=== PATIENT | female | born 1990 | race Two or more races ===

== ENCOUNTER 2018-02-02 07:02 | Emergency (ER) | payer OTHER ==
--- NOTE | 2018-02-02 07:33 | ED Physician Documentation ---
History of Present Illness - Stated complaint Stated Complaint: 12 WKS PREG/BLEEDING/CRAMPING - Chief complaint Chief Complaint: General - Additonal information Additional information: hx from pt last baby is 9 months old right now 2 prior C sections she is not sure how far along she is with this preg as she had not resumed nl periods she duesses 10-14 weeks has not had any care has brown dc for 3 days and now red beeding lower abd cramping nausea some diarrhea no fever Review of Systems Constitutional: denies: Fever Cardiac: denies: Chest pain / pressure Respiratory: denies: Dyspnea GI: reports: Abdominal Pain, Nausea, Diarrhea. denies: Vomiting : reports: Vaginal bleeding, Now EGA Endocrine: denies: Easy bruising / bleeding Immunocompromised: denies: Immunocompromised PD PAST MEDICAL HISTORY - Allergies Allergies/Adverse Reactions: Allergies Allergy/AdvReac Type Severity Reaction Status Date / Time No Known Drug Allergies Allergy Verified 02/02/18 07:19 PD ED PE NORMAL - Vitals Vital signs reviewed: Yes - General General: Alert and oriented X 3 - HEENT HEENT: PERRL - Neck Neck: Supple, no meningeal sign - Cardiac Cardiac: RRR - Respiratory Respiratory: No respiratory distress, Clear bilaterally - Abdomen Abdomen: Soft, Other (mod TTP across low abd s rebound or guarding) - Derm Derm: Normal color - Extremities Extremities: Normal ROM s pain - Neuro Neuro: Alert and oriented X 3 Results - Vitals Vitals: Vital Signs - 24 hr 02/02/18 07:11 Temperature 35.6 C L Heart Rate 78 Respiratory 16 Rate Blood Pressure 123/78 O2 Saturation 100 Oxygen O2 Source Room air - Labs Labs: Laboratory Tests 02/02/18 02/02/18 02/02/18 07:43 07:43 09:11 HCG, Quant 3662.00 Urine Color YELLOW Urine Clarity CLEAR Urine pH 6.0 Ur Specific [place] 1.015 Urine Protein NEGATIVE Urine Glucose (UA) NEGATIVE Urine Ketones NEGATIVE Urine Occult Blood MODERATE H Urine Nitrite NEGATIVE Urine Bilirubin NEGATIVE Urine Urobilinogen 0.2 (NORMAL) Ur Leukocyte Esterase NEGATIVE Urine RBC 0-5 Urine WBC 0-3 Ur Squamous Epith Cells MOD Squamous H Urine Bacteria Few Ur Microscopic Review INDICATED Urine Culture Comments NOT INDICATED Urine HCG, Qual Blood Type A POSITIVE 02/02/18 09:12 HCG, Quant Urine Color Urine Clarity Urine pH Ur Specific [place] 1.015 Urine Protein Urine Glucose (UA) Urine Ketones Urine Occult Blood Urine Nitrite Urine Bilirubin Urine Urobilinogen Ur Leukocyte Esterase Urine RBC Urine WBC Ur Squamous Epith Cells Urine Bacteria Ur Microscopic Review Urine Culture Comments Urine HCG, Qual POSITIVE Blood Type - Rads (name of study) pelvic sono Radiology: See rad report (verbal from rad who called me after doing sono :no IUP, nl adenxae, no ff. Final written report = fluid collection in uterus which could represent a gestational sac, cyct or focal fluid, if gest sac would correspond to 8w6d discordant with pt guess of her EGA) PD MEDICAL DECISION MAKING - ED course ED course: estimates she is 10-14 weeks preg, quant > discretionary threshold and no IUP on sono called Dr Vargas OB at 0945 and he will come see pt seen by Dr Vargas - he feels blighted ovum, os closed on his exam, will dc with TAB precautions - Sepsis Event Vital Signs: Vital Signs - 24 hr 02/02/18 07:11 Temperature 35.6 C L Heart Rate 78 Respiratory 16 Rate Blood Pressure 123/78 O2 Saturation 100 Oxygen O2 Source Room air Departure - Departure Disposition: 01 Home, Self Care Clinical Impression: Incomplete miscarriage Condition: Good Instructions: ED Miscarriage Incom Follow-Up: Juan Vargas MD [Provider Admit Priv/Credential] - Comments: Unfortunately the ultrasound shows what appears to be a non viable . You are likely in the midst of having a miscarriage It does not look like this is an ectopic Your blood type is A + You are scheduled for a D&C this afternoon with Dr Vargas Return at 2 PM to check into the peroperative area. Do not eat or drink anything before then !! If anything changes or worsens between now and 2 PM, call Dr Vargas or come back to the ER
--- NOTE | 2018-02-02 09:15 | Ultrasound Report ---
Procedure Date: 02/02/2018 Accession Number: [id number] / [id number] Procedure: US - OB First Trimester CPT Code: FULL RESULT: EXAM: OB First Trimester DATE: 02/02/2018 8:41 AM CLINICAL HISTORY: vag bleed TECHNIQUE: Real-time scanning was performed in transabdominal and transvaginal fashion with appeals representative static images obtained. COMPARISON: None FINDINGS: The patient's reported last menstrual period was 10/30/2017 for clinical estimated gestational age of 13 weeks and 4 days. Beta hCG is reported to be within the mid 3000s. There were cystic structure within the endometrial canal immaturity mean diameter of 36.5 mm, possible gestational sac. No yolk sac or embryo is identified within. There is no free fluid in the pelvis or adnexal region. There is no hydrosalpinx. The right ovary measures 4.0 x 1.5 x 2.3 cm appears morphologically unremarkable with normal blood flow on color Doppler The left ovary measures 2.8 x 2.2 x 2.7 cm and appears morphologically unremarkable with normal blood flow on color Doppler. IMPRESSION: of unknown location. The intrauterine fluid collection which could represent a gestational sac, cyst or focal fluid would correspond to estimated gestational age of 8 weeks and 6 days which is discordant with the reported last menstrual period. Close interval clinical follow-up including serial beta hCG and follow-up ultrasound are recommended. Findings were discussed at the time of interpretation over the phone at 9:[address] Fine.
--- NOTE | 2018-02-02 09:16 | Ultrasound Report ---
Procedure Date: 02/02/2018 Accession Number: [id number] / [id number] Procedure: US - OB Transvaginal CPT Code: FULL RESULT: EXAM: OB Transvaginal DATE: 02/02/2018 8:50 AM CLINICAL HISTORY: vag bleed TECHNIQUE: Real-time scanning was performed in transabdominal and transvaginal fashion with procurement representative static images obtained. COMPARISON: None FINDINGS: The patient's reported last menstrual period was 10/30/2017 for clinical estimated gestational age of 13 weeks and 4 days. Beta hCG is reported to be within the mid 3000s. There were cystic structure within the endometrial canal immaturity mean diameter of 36.5 mm, possible gestational sac. No yolk sac or embryo is identified within. There is no free fluid in the pelvis or adnexal region. There is no hydrosalpinx. The right ovary measures 4.0 x 1.5 x 2.3 cm appears morphologically unremarkable with normal blood flow on color Doppler The left ovary measures 2.8 x 2.2 x 2.7 cm and appears morphologically unremarkable with normal blood flow on color Doppler. IMPRESSION: of unknown location. The intrauterine fluid collection which could represent a gestational sac, cyst or focal fluid would correspond to estimated gestational age of 8 weeks and 6 days which is discordant with the reported last menstrual period. Close interval clinical follow-up including serial beta hCG and follow-up ultrasound are recommended. Findings were discussed at the time of interpretation over the phone at 9:[address] Fine.
[2018-02-02 09:22] LABS: BILIRUBIN,URINE NEGATIVE (NEGATIVE); GLUCOSE, URINE (UA) NEGATIVE (NEGATIVE); KETONES,URINE (UA) NEGATIVE (NEGATIVE); LEUKOCYTE ESTERASE, URINE NEGATIVE (NEGATIVE); NITRITE,URINE NEGATIVE (NEGATIVE); OCCULT BLOOD,URINE MODERATE (NEGATIVE); PROTEIN,URINE NEGATIVE (NEGATIVE); UROBILINOGEN,URINE 0.2 (NORMAL) E.U./dL (NORMAL)
[2018-02-02 09:25] LABS: CLARITY,URINE CLEAR (CLEAR)
[2018-02-02 09:25] LABS: HCG UR QUAL POSITIVE
[2018-02-02 09:36] LABS: BACTERIA,URINE Few /HPF (None Seen); RBC,URINE 0-5 /HPF (0-5); SQUAMOUS EPITHELIAL CELL,UR MOD Squamous (<= Few)
[2018-02-02] MEDS ORDERED: ACETAMINOPHEN 325 MG TABLET PO STA (09:50)
[2018-02-02 10:53] LABS: BASOPHILS % (AUTO) 0.3 %; EOSINOPHILS # (AUTO) 0.4 10^3/uL (0.0-0.7); EOSINOPHILS % (AUTO) 7.2 %; HGB - HEMOGLOBIN 13.2 g/dL (12.0-16.0); LYMPHOCYTES # (AUTO) 2.1 10^3/uL (1.5-3.5); LYMPHOCYTES % (AUTO) 37.3 %; MEAN CORPUSCULAR HEMOGLOBIN 29.8 pg (27.0-31.0); MEAN CORPUSCULAR HGB CONC 34.2 g/dL (32.0-36.0); MEAN CORPUSCULAR VOLUME 87.1 fL (81.0-99.0); MEAN PLATELET VOLUME 8.9 fL (7.9-10.8); MONOCYTES # (AUTO) 0.3 10^3/uL (0.0-1.0); MONOCYTES % (AUTO) 5.6 %; NEUTROPHILS # (AUTO) 2.7 10^3/uL (1.5-6.6); NEUTROPHILS % (AUTO) 49.6 %; PLT - PLATELET COUNT 221 10^3/uL (130-450); RED BLOOD COUNT 4.43 10^6/uL (4.20-5.40); RED CELL DISTRIBUTION WIDTH 13.1 % (12.0-15.0); WHITE BLOOD COUNT 5.5 x10^3/uL (4.8-10.8)
[2018-02-02 11:00] VITALS: BP 114/74
== END 2018-02-02 11:06 | disposition home or self-care (01) ==
LOC: ED 07:02
DX: O03.4 Incomplete spontaneous abortion without complication (principal)
CPT/HCPCS: 76801; 76817; 81001; 81025; 84702; 85025; 86900; 86901; 87491; 87591; 99283; A9270; 81003; 87086

== ENCOUNTER 2018-02-02 13:55 | Day surgery (SDC) | payer OTHER ==
[2018-02-02] MEDS ORDERED: ceFAZolin 2 GM/50 ML 2 GM/50 ML BAG IV ONE (14:19)
[2018-02-02] MEDS ORDERED: LACTATED RINGERS 1,000 ML IV ONE ×2 (14:23→15:40)
[2018-02-02] MEDS ORDERED: LIDOCAINE MPF 1%-EPI 1:200000 30 ML VIAL SUBQ ONE (15:13)
--- NOTE | 2018-02-02 15:18 | PREOP HISTORY & PHYSICAL ---
DATE OF SERVICE: 02/02/2018 Physician: Juan Vargas MD PATIENT IDENTIFICATION: Patient is a 27-year-old G3, P2, female whose last menstrual period was 10/30/2017, making it 13.1 weeks. CHIEF COMPLAINT: Vaginal bleeding. HISTORY OF PRESENT ILLNESS: Patient developed vaginal bleeding on 01/03/2018, initially was brown. However, with time it has become heavier and changed to bright red. She does have some clots occasionally. She complains of some soreness. She thought she passed tissue this morning. She had an ultrasound in the emergency room which shows an empty gestational sac. The tubes and ovaries appear to be free of disease and there is no evidence of any fluid in the cul-de-sac. She denies any history of chlamydia infections or ectopic . She has delivered an infant on 05/12/2017. This was done via section. Her first section, however, had a T incision on the uterus. PAST MEDICAL HISTORY: Patient denies any hypertensive or cardiac disease. PAST SURGICAL HISTORY: Positive for a first with a T incision, and then a repeat which was a low transverse incision. ALLERGIES: NONE KNOWN. CURRENT MEDICATIONS: None. FAMILY HISTORY: Patient denies use of alcohol, tobacco, street or addictive drugs or any tetrahydrocannabinol. 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 PHYSICAL EXAMINATION VITAL SIGNS: Temperature 95.6, pulse 78, respirations 16, blood pressure 123/ 78. HEENT: Pupils equal, round. Extraocular muscles intact. Mouth is clear. Thyroid is not palpably enlarged. HEART: Regular rate and rhythm without murmurs. LUNGS: Lung jerome are clear with no rales, wheezes. ABDOMEN: Soft, nontender without evidence of any rebound. BACK: No spinal CVA tenderness noted. PELVIC: Normal external genitalia without evidence of any active bleeding. The vaginal vault shows dark blood in the vault. The cervix is closed. There is a scant amount of red blood noted. Uterus is palpated roughly 12-week size, nontender. The adnexa were not enlarged. IMPRESSION: A 27-year-old G3, P2, 13.1-week gestation with an anembryonic gestation. PLAN: I presented different options which ranged from observation to Cytotec, as well as D and C, sharp and suction. At this point because she has had a T incision on her uterus, I feel that a prostaglandins would not be warranted. Patient is planning to go on holiday this next week and, because she would like to have an end of this and she is greater than 8 weeks' gestation, will recommend doing a sharp and suction D and C. Patient did have a cookie at 8 this morning. Risks and benefits were explained to the patient, including those but not limited to bleeding, infection; injury to pelvic organs, which include the uterus, tubes, ovaries, bowel, bladder and ureters. She is aware of the potential for uterine perforation. Will plan to do the sharp and suction D and C this afternoon. Patient is noted to be A positive; beta hCG was 303,662. TD: 02/02/2018 12:44 SRINI
[2018-02-02] MEDS ORDERED: LIDOCAINE 1%-EPI 1:100000 30 ML MDV ONE (15:21)
[2018-02-02] MEDS ORDERED: METHYLERGONOVINE 0.2 MG/ML AMP IVP ONE ×2 (15:40→16:55)
[2018-02-02] MEDS ORDERED: MIDAZOLAM 2 MG/2 ML VIAL IVP ONE (15:40)
[2018-02-02] MEDS ORDERED: ONDANSETRON 4 MG/2 ML VIAL IVP ONE (15:40)
[2018-02-02] MEDS ORDERED: fentaNYL 100 MCG/2 ML VIAL IVP ONE (15:40)
[2018-02-02] MEDS ORDERED: SUCCINYLCHOLINE 200 MG/10 ML VIAL IVP ONE (15:40)
[2018-02-02] MEDS ORDERED: ROCURONIUM 50 MG/5 ML VIAL IVP ONE (15:40)
[2018-02-02] MEDS ORDERED: KETOROLAC 30 MG/ML VIAL IVP ONE (15:40)
[2018-02-02] MEDS ORDERED: PROPOFOL 200 MG/20 ML VIAL IVP ONE (15:40)
[2018-02-02] MEDS ORDERED: DEXAMETHASONE 4 MG/ML VIAL IVP ONE (15:40)
[2018-02-02] MEDS ORDERED: LIDOCAINE-MPF 2% 5 ML VIAL IM ONE (15:40)
[2018-02-02] MEDS ORDERED: LIDOCAINE 1%-EPI 1:100000 20 ML MDV SUBQ ONE (15:43)
[2018-02-02] MEDS ORDERED: MIDAZOLAM 2 MG/2 ML VIAL ONE (16:31)
[2018-02-02 16:59] VITALS: BP 101/77
--- NOTE | 2018-02-02 20:27 | OPERATIVE REPORT ---
DATE OF SERVICE: 02/02/2018 Physician: Juan Vargas MD PREOPERATIVE DIAGNOSIS: A 13-week missed with an embryonic gestation. POSTOPERATIVE DIAGNOSIS: A 13-week missed with an embryonic gestation. PROCEDURE: Sharp and suction D and C. SURGEON: Juan Vargas M.D. ANESTHESIA: Albino Urbina CRNA. General via LMA. FINDINGS: Uterus sounded to 11 cm. An adequate amount of products of conception was removed. Uterus palpated roughly 11 cm anterior. The ultrasound was reviewed and the uterus was felt to be 11 cm. COMPLICATIONS: None. ESTIMATED BLOOD LOSS: 150 mL. SPECIMENS TO PATHOLOGY: Products of conception. DESCRIPTION OF PROCEDURE: Following adequate anesthesia, the patient was placed in the dorsal lithotomy position in [facility]. At this point, a timeout was performed, which concerns were addressed. The issue of a previous T incision on the uterus was reviewed. A speculum was then placed in the vagina. The cervix was visualized, grasped with a single-tooth tenaculum. The uterus was then sounded to 11 cm. It was then dilated up to 11 mm. A size 10 suction catheter was placed. Suction was applied, rotated and a moderate amount of tissue was removed as well as a flash of what appeared to be amniotic fluid. This was repeated 2 more times. The endometrial cavity was sharply curetted in all quadrants. No further tissue was removed. At this point, the cervix was released from the single-tooth tenaculum. There was some bleeding from the puncture sites. These were treated with pressure. At this point, the cannister was opened to assure there was adequate tissue and that appeared to be a gestational sac tissue. The ring forceps were removed and the speculum was removed. The patient tolerated the procedure well and was taken to the recovery in stable condition. Sponge and needle counts were correct. TD: 02/02/2018 16:46 SRINI
== END 2018-02-02 13:56 | disposition home or self-care (01) ==
LOC: SDS 13:55
PROVIDERS: ATTEND Obstetrics & Gynecology
PROC: 10D17ZZ Extraction of Products of Conception, Retained, Via Natural or Artificial Opening (ICD-10-PCS; principal; 2018-02-02 15:00)
DX: O02.1 Missed abortion (principal); O20.9 Hemorrhage in early pregnancy, unspecified; O26.90 Pregnancy related conditions, unspecified, unspecified trimester; O03.4 Incomplete spontaneous abortion without complication
CPT/HCPCS: 59820; 76801; 76817; 81001; 81025; 84702; 85025; 86900; 86901; 87491; 87591; 88305; 99283; A9270; J0330; J0690; J7120; 81003; 87086

== ENCOUNTER 2018-02-10 11:14 | Day surgery (SDC) | payer OTHER ==
[2018-02-10] MEDS ORDERED: LACTATED RINGERS 1,000 ML IV ONE ×2 (11:30→13:23)
[2018-02-10 11:44] LABS: BASOPHILS % (AUTO) 0.6 %; EOSINOPHILS # (AUTO) 0.3 10^3/uL (0.0-0.7); EOSINOPHILS % (AUTO) 5.3 %; HGB - HEMOGLOBIN 13.2 g/dL (12.0-16.0); LYMPHOCYTES # (AUTO) 2.1 10^3/uL (1.5-3.5); LYMPHOCYTES % (AUTO) 32.2 %; MEAN CORPUSCULAR HEMOGLOBIN 29.9 pg (27.0-31.0); MEAN CORPUSCULAR HGB CONC 34.7 g/dL (32.0-36.0); MEAN CORPUSCULAR VOLUME 86.1 fL (81.0-99.0); MEAN PLATELET VOLUME 8.6 fL (7.9-10.8); MONOCYTES # (AUTO) 0.4 10^3/uL (0.0-1.0); MONOCYTES % (AUTO) 6.1 %; NEUTROPHILS # (AUTO) 3.7 10^3/uL (1.5-6.6); NEUTROPHILS % (AUTO) 55.8 %; PLT - PLATELET COUNT 244 10^3/uL (130-450); RED BLOOD COUNT 4.43 10^6/uL (4.20-5.40); RED CELL DISTRIBUTION WIDTH 13.4 % (12.0-15.0); WHITE BLOOD COUNT 6.5 x10^3/uL (4.8-10.8)
[2018-02-10] MEDS ORDERED: ceFAZolin 2 GM/50 ML 2 GM/50 ML BAG IV ONE (11:45)
[2018-02-10] MEDS ORDERED: SCOPOLAMINE PATCH TOP ONE (11:51)
[2018-02-10] MEDS ORDERED: LIDOCAINE 1%-EPI 1:100000 30 ML MDV ONE (12:29)
[2018-02-10] MEDS ORDERED: LIDOCAINE MPF 1%-EPI 1:200000 10 ML VIAL IJ ONE ×2 (12:51)
[2018-02-10] MEDS ORDERED: fentaNYL 100 MCG/2 ML VIAL IVP ONE (13:11)
[2018-02-10] MEDS ORDERED: MIDAZOLAM 2 MG/2 ML VIAL IVP ONE (13:11)
[2018-02-10] MEDS ORDERED: KETOROLAC 30 MG/ML VIAL IVP ONE (13:11)
[2018-02-10] MEDS ORDERED: DEXAMETHASONE 4 MG/ML VIAL IVP ONE (13:11)
[2018-02-10] MEDS ORDERED: ONDANSETRON 4 MG/2 ML VIAL IVP ONE (13:11)
[2018-02-10] MEDS ORDERED: PROPOFOL 200 MG/20 ML VIAL IVP ONE (13:11)
[2018-02-10 14:22] VITALS: BP 108/67
--- NOTE | 2018-02-10 16:36 | OPERATIVE REPORT ---
DATE OF SERVICE: 02/10/2018 Physician: Juan Vargas MD PREOPERATIVE DIAGNOSIS: Status post dilatation and curettage with retained products of conception. POSTOPERATIVE DIAGNOSIS: Status post dilatation and curettage with retained products of conception. PROCEDURE PERFORMED: Sharp and suction D and C. SURGEON: Juan Vargas M.D. ANESTHESIA: General via LMA with Haleigh Ferrari CRNA. FINDINGS: Uterus sounded to 10 cm. Cervix was closed. A transabdominal ultrasound showed evidence of products of conception, which was roughly about 2 x 4 x 4 cm in size. COMPLICATIONS: None. ESTIMATED BLOOD LOSS: 50 mL. SPECIMENS: Products of conception. DESCRIPTION OF PROCEDURE: Following adequate general anesthesia via LMA, patient was placed in the d orsal lithotomy position in [facility]. A timeout was performed, at which time the patient was i dentified as well as concerns addressed. The concerns were those of the fact that she had a previous T incision on her uterus and the concerns about uterine perforation. An ultrasound was performed pr ior to the onset of the case, at which time there was evidence of tissue in the uterus roughly 2 x 4 cm in size. She was prepped and draped. A speculum was placed in the vagina, cervix visualized and then grasped with a single-tooth tenaculum. The uterus was sounded to 10 cm and the cervix dilated u p to size 10 mm. A transabdominal ultrasound was placed utilizing a sterile sleeve for visualization during the procedure. The trocar and sound were noted to be in the uterine cavity. Suction was raad lied. Rotation was also utilized and the suction was gradually withdrawn. This was repeated a secon d time. The ultrasound was utilized to look at the uterus to confirm that the tissue had been remove d. The endometrial cavity was sharply curetted in all 4 quadrants and the suction catheter was place d one last time. Once again, the ultrasound showed no further tissue. The cervix was released from the single-tooth tenaculum. The patient was taken to the recovery room in stable condition. Sponge and needle counts were correct. TD: 02/10/2018 13:34
== END 2018-02-10 11:15 | disposition home or self-care (01) ==
LOC: SDS 11:14
PROVIDERS: ATTEND Obstetrics & Gynecology
PROC: 10D17Z9 Manual Extraction of Products of Conception, Retained, Via Natural or Artificial Opening (ICD-10-PCS; principal; 2018-02-10 12:00)
DX: O03.4 Incomplete spontaneous abortion without complication (principal)
CPT/HCPCS: 59812; 85025; J0690; J3490; J7120

== ENCOUNTER 2018-06-09 11:46 | Outpatient (CLI) | payer OTHER | END 2018-06-09 11:47 | disposition critical access hospital (66) | LOC: EMS 11:46 | PROVIDERS: ATTEND Surgery | DX: M54.9 Dorsalgia, unspecified (principal) | CPT/HCPCS: A0425; A0427 ==

== ENCOUNTER 2019-05-13 04:45 | Emergency (ER) | payer OTHER ==
--- NOTE | 2019-05-13 05:32 | ED Physician Documentation ---
PD HPI NECK PAIN - Stated complaint Stated Complaint: SHOULDER PX - Chief complaint Chief Complaint: Trauma Ext - History obtained from History obtained from: Patient - History of Present Illness Timing - onset: Yesterday Timing - details: Gradual onset Pain level max: 7 Pain level now: 3 Location: Right Quality: Pain Associated symptoms: No: Fever, Weakness, Numbness Improves with: Rest Worsened by: Movement Similar symptoms before: Has not had sx before Recently seen: Not recently seen - Additional information Additional information: c/o gradual onset right shoulder pain since yesterday, distinctly worse with movement involving right shoulder. No obvious inciting event, although she did work out yesterday for the first time in a while. Since symptom onset, the pain has steadily gotten worse and now involves right side of neck and pain radiating down her RUE to fingers with "pins and needles" paresthesias. Review of Systems Constitutional: denies: Fever Musculoskeletal: reports: Neck pain, Joint pain. denies: Back pain, Extremity swelling, Joint swelling Neurologic: reports: Numbness (paresthesia RUE). denies: Focal weakness PD PAST MEDICAL HISTORY - Past Medical History Cardiovascular: None Respiratory: None Neuro: None Endocrine/Autoimmune: None GI: None PATIENT SUPPORT PARTNER: None : None HEENT: Chronic vision loss Psych: Depression Musculoskeletal: None Derm: None - Past Surgical History Past Surgical History: Yes /PATIENT SUPPORT PARTNER: section - Present Medications Home Medications: Ambulatory Orders Medication Instructions Recorded Confirmed Cyclobenzaprine [Flexeril] 10 mg PO TID PRN #20 tablet 06/09/18 Hydrocodone/Acetaminophen 1 - 2 each PO Q6H PRN #14 tablet 06/09/18 [Hydrocodon-Acetaminophen 5-325] Meloxicam [Mobic] 7.5 mg PO BID PRN #20 tablet 06/09/18 Sertraline HCl [Zoloft] 100 mg PO 06/09/18 06/09/18 Cyclobenzaprine [Flexeril] 10 mg PO TID PRN #20 tablet 05/13/19 Hydrocodone/Acetaminophen 1 - 2 each PO Q6H PRN #14 tablet 05/13/19 [Hydrocodon-Acetaminophen 5-325] - Allergies Allergies/Adverse Reactions: Allergies Allergy/AdvReac Type Severity Reaction Status Date / Time No Known Drug Allergies Allergy Verified 06/09/18 12:12 - Social History Does the pt smoke?: No Smoking Status: Never smoker Does the pt drink ETOH?: No Does the pt have substance abuse?: No - Immunizations Immunizations are current?: Yes - POLST Patient has POLST: No PD ED PE NORMAL - Vitals Vital signs reviewed: Yes - General General: Alert and oriented X 3, Well developed/nourished, Other (appears uncomfortable at times during H+P, particularly with movement involving RUE at shoulder) - Neck Neck: No bony TTP - Derm Derm: Normal color, Warm and dry, No rash - Extremities Extremities: No tenderness to palpate, No edema PD ED PE EXPANDED - Extremities Extremities: Limited ROM (right shoulder: prefers to maintain RUE in adduction and limited ROM due to pain with abduction or external rotation), Sensory intact, Vascular intact (brisk capillary refill right hand/fingers, strong right radial pulse). No: Red warm joint Results - Vitals Vitals: Oxygen O2 Source Room air PD MEDICAL DECISION MAKING - ED course Complexity details: considered differential, d/w patient Departure - Departure Disposition: 01 Home, Self Care Clinical Impression: Cervical radiculopathy Condition: Good Instructions: ED Cervical Radiculopathy Follow-Up: Parveen Bustos ARNP [Primary Care Provider] - (Call to arrange for next available appointment) Prescriptions: Cyclobenzaprine [Flexeril] 10 mg PO TID PRN #20 tablet PRN Reason: Spasms Hydrocodone/Acetaminophen [Hydrocodon-Acetaminophen 5-325] 1 - 2 each PO Q6H PRN #14 tablet PRN Reason: pain Discharge Date/Time: 05/13/19 06:25
[2019-05-13] MEDS ORDERED: HYDROcod/ACET 5/325 Prepack 4 PO STA (06:00)
[2019-05-13] MEDS ORDERED: CYCLOBENZAPRINE 10 MG Prepack 2 PO PRN (06:00)
[2019-05-13] MEDS ORDERED: CHERRY SYRUP 10 ML UDC PO ONE (06:00)
[2019-05-13] MEDS ORDERED: DEXAMETHASONE 10 MG/ML VIAL PO STA (06:00)
[2019-05-13 06:22] VITALS: BP 120/86
== END 2019-05-13 06:25 | disposition home or self-care (01) ==
LOC: ED 04:45
DX: M54.12 Radiculopathy, cervical region (principal)
CPT/HCPCS: 99282; 99284; A9270

== ENCOUNTER 2019-06-28 15:38 | Outpatient (CLI) | payer OTHER | END 2019-06-28 15:39 | disposition critical access hospital (66) | LOC: EMS 15:38 | PROVIDERS: ATTEND Surgery | DX: R07.9 Chest pain, unspecified (principal); M54.2 Cervicalgia; V43.52XA Car driver injured in collision with other type car in traffic accident, initial encounter; Y92.413 State road as the place of occurrence of the external cause | CPT/HCPCS: A0425; A0429 ==

== ENCOUNTER 2019-06-28 15:43 | Emergency (ER) | payer OTHER ==
[2019-06-28] MEDS ORDERED: MORPHINE 2 MG/ML CARPUJECT IVP STA (15:47)
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
[2019-06-28] MEDS ORDERED: IOVERSOL 320 100 ML VIAL IVP ONE ×2 (15:53→17:28)
[2019-06-28 16:10] LABS: BASOPHILS % (AUTO) 0.5 %; EOSINOPHILS # (AUTO) 0.2 10^3/uL (0.0-0.7); EOSINOPHILS % (AUTO) 3.6 %; HGB - HEMOGLOBIN 14.3 g/dL (12.0-16.0); LYMPHOCYTES # (AUTO) 2.4 10^3/uL (1.5-3.5); LYMPHOCYTES % (AUTO) 42.2 %; MEAN CORPUSCULAR HEMOGLOBIN 29.4 pg (27.0-31.0); MEAN CORPUSCULAR VOLUME 86.6 fL (81.0-99.0); MEAN PLATELET VOLUME 10.3 fL (7.9-10.8); MONOCYTES # (AUTO) 0.3 10^3/uL (0.0-1.0); MONOCYTES % (AUTO) 5.2 %; NEUTROPHILS # (AUTO) 2.7 10^3/uL (1.5-6.6); PLT - PLATELET COUNT 225 10^3/uL (130-450); RED BLOOD COUNT 4.86 10^6/uL (4.20-5.40); RED CELL DISTRIBUTION WIDTH 12.7 % (12.0-15.0); WHITE BLOOD COUNT 5.6 x10^3/uL (4.8-10.8)
[2019-06-28 16:26] LABS: ALBUMIN 4.4 g/dL (3.2-5.5); ALBUMIN/GLOBULIN RATIO 1.3 (1.0-2.2); BILIRUBIN,TOTAL 0.4 mg/dL (0.2-1.0); CALCIUM 9.5 mg/dL (8.5-10.3); CREATININE 0.6 mg/dL (0.4-1.0); TOTAL PROTEIN 7.9 g/dL (6.7-8.2)
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
[2019-06-28 18:17] VITALS: BP 112/80
== END 2019-06-28 18:42 | disposition home or self-care (01) ==
LOC: EDBD → EDUNIT# → ED 15:43
DX: S22.22XA Fracture of body of sternum, initial encounter for closed fracture (principal); V43.52XA Car driver injured in collision with other type car in traffic accident, initial encounter; W22.11XA Striking against or struck by driver side automobile airbag, initial encounter; Y92.410 Unspecified street and highway as the place of occurrence of the external cause; K76.9 Liver disease, unspecified; K80.20 Calculus of gallbladder without cholecystitis without obstruction
CPT/HCPCS: 36415; 71260; 72125; 74177; 80053; 83690; 84484; 85025; 93005; 96374; 99284; Q9967

== ENCOUNTER 2019-07-21 16:51 | Outpatient (CLI) | payer OTHER ==
[2019-07-21] MEDS ORDERED: GADOXETATE DISODIUM 2.5 MMOL/10 ML VIAL IVP ONE ×2 (16:52→17:30)
[2019-07-21] MEDS ORDERED: GADOXETATE DISODIUM 2.5 MMOL/10 ML VIAL IVP SCH (19:00)
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
== END 2019-07-21 16:52 | disposition home or self-care (01) ==
LOC: DI 16:51
PROVIDERS: ATTEND Family Medicine
DX: K76.89 Other specified diseases of liver (principal); K80.20 Calculus of gallbladder without cholecystitis without obstruction
CPT/HCPCS: 74183; A9581

== ENCOUNTER 2020-01-19 18:51 | Outpatient (CLI) | payer OTHER | END 2020-01-19 23:59 | disposition home or self-care (01) | LOC: EMS 18:51 | PROVIDERS: ATTEND Surgery | DX: T42.6X2A Poisoning by other antiepileptic and sedative-hypnotic drugs, intentional self-harm, initial encounter (principal) | CPT/HCPCS: A0425; A0429 ==

== ENCOUNTER 2020-01-19 19:12 | Emergency (ER) | payer OTHER ==
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
[2020-01-19 19:54] LABS: MUDS CUTOFF CONCENTRATIONS CUTOFF CONC BELOW:
[2020-01-19 19:58] LABS: BILIRUBIN,URINE NEGATIVE (NEGATIVE); GLUCOSE, URINE (UA) NEGATIVE (NEGATIVE); KETONES,URINE (UA) NEGATIVE (NEGATIVE); LEUKOCYTE ESTERASE, URINE NEGATIVE (NEGATIVE); NITRITE,URINE NEGATIVE (NEGATIVE); OCCULT BLOOD,URINE NEGATIVE (NEGATIVE); PROTEIN,URINE NEGATIVE (NEGATIVE); UROBILINOGEN,URINE 0.2 (NORMAL) E.U./dL (NORMAL)
[2020-01-19 20:00] LABS: BASOPHILS % (AUTO) 0.3 %; EOSINOPHILS # (AUTO) 0.3 10^3/uL (0.0-0.7); EOSINOPHILS % (AUTO) 3.9 %; HGB - HEMOGLOBIN 13.2 g/dL (12.0-16.0); LYMPHOCYTES # (AUTO) 2.1 10^3/uL (1.5-3.5); MEAN CORPUSCULAR HEMOGLOBIN 29.3 pg (27.0-31.0); MEAN CORPUSCULAR HGB CONC 34.2 g/dL (32.0-36.0); MEAN CORPUSCULAR VOLUME 85.6 fL (81.0-99.0); MEAN PLATELET VOLUME 10.3 fL (7.9-10.8); MONOCYTES # (AUTO) 0.4 10^3/uL (0.0-1.0); MONOCYTES % (AUTO) 5.4 %; NEUTROPHILS # (AUTO) 3.9 10^3/uL (1.5-6.6); NEUTROPHILS % (AUTO) 58.2 %; PLT - PLATELET COUNT 235 10^3/uL (130-450); RED BLOOD COUNT 4.51 10^6/uL (4.20-5.40); RED CELL DISTRIBUTION WIDTH 12.8 % (12.0-15.0); WHITE BLOOD COUNT 6.7 x10^3/uL (4.8-10.8)
[2020-01-19 20:14] LABS: CLARITY,URINE CLEAR (CLEAR); HCG UR QUAL NEGATIVE
[2020-01-19 20:15] LABS: ACETAMINOPHEN < 10 ug/mL (10-30); ALBUMIN/GLOBULIN RATIO 1.3 (1.0-2.2); ALKALINE PHOSPHATASE 54 IU/L (42-121); ALT ALANINE AMINOTRANSFERASE 26 IU/L (10-60); AST ASPARTATE AMINOTRANSFERASE 20 IU/L (10-42); BILIRUBIN,TOTAL 0.7 mg/dL (0.2-1.0); BUN - BLOOD UREA NITROGEN 12 mg/dL (6-20); CALCIUM 8.7 mg/dL (8.5-10.3); CARBON DIOXIDE - CO2 25 mmol/L (21-32); CHLORIDE 105 mmol/L (101-111); CREATININE 0.5 mg/dL (0.4-1.0); GLUCOSE 95 mg/dL (70-100); LIPASE 39 U/L (22-51); SALICYLATE < 6.0 mg/dL; SODIUM 136 mmol/L (135-145); TOTAL PROTEIN 7.2 g/dL (6.7-8.2)
[2020-01-19 20:16] LABS: AMPHETAMINE SCREEN,URINE NEGATIVE (NEGATIVE); BENZODIAZEPINES SCREEN, URINE NEGATIVE (NEGATIVE); COCAINE SCREEN URINE NEGATIVE (NEGATIVE); METHADONE SCREEN, URINE NEGATIVE (NEGATIVE); METHAMPHETAMINES SCREEN, URINE NEGATIVE (NEGATIVE); OPIATE SCREEN, URINE NEGATIVE (NEGATIVE); OXYCODONE SCREEN, URINE NEGATIVE (NEGATIVE); PROPOXYPHENE SCREEN, URINE NEGATIVE (NEGATIVE); TRICYCLIC ANTIDEPRESSANT,URINE NEGATIVE (NEGATIVE)
--- NOTE | 2020-01-20 06:22 | ED Physician Documentation ---
ED Addendum - Addendum Addendum: 01/20/20 06:20 29-year-old female with an overdose suicide attempt has been accepted at [facility] pending review of her case. She slept most of the night.
[2020-01-20 13:57] VITALS: BP 127/71
== END 2020-01-20 14:35 ==
LOC: EDUNIT# → ED 19:12
DX: T42.6X2A Poisoning by other antiepileptic and sedative-hypnotic drugs, intentional self-harm, initial encounter (principal); F33.2 Major depressive disorder, recurrent severe without psychotic features
CPT/HCPCS: 36415; 80053; 80306; 80307; 80320; 80329; 81001; 81003; 81025; 83690; 85025; 87086; 99283; 99285